=== PATIENT | female | born 1985 | race African-American/Black ===

== ENCOUNTER 2017-09-24 03:07 | Emergency (ER) | payer BC ==
--- NOTE | 2017-09-24 03:22 | PDOC ---
History of Present Illness - General Stated Complaint: STOMACH PAIN Time Seen by Provider: 09/24/17 03:22 - History of Present Illness Initial Comments: 09/24/17 03:50 Ms. Sanchez is a 32 yo female w/ pmh of sleep apnea and known umbilical hernia scheduled for repair tomorrow who presents for evaluation of abdominal pain earlier today. She reports she had an instance of sharp pain and experienced swelling of her upper abdomen that has now gone down. Is not currently having sharp pain and describes it as a more dull ache. She had some nausea with this episode earlier (without vomit). The patient denies chest pain, shortness of breath, headache and dizziness. Denies fever, chills, vomit, diarrhea and constipation. Denies dysuria, frequency, urgency and hematuria. Allergies: NKDA Past History - Past Medical History Allergies/Adverse Reactions: Allergies Allergy/AdvReac Type Severity Reaction Status Date / Time No Known Allergies Allergy Verified 09/24/17 03:26 Home Medications: Ambulatory Orders Ascorbic Acid [Vitamin C] 500 mg PO DAILY 09/19/17 - Suicide/Smoking/Psychosocial Hx Smoking History: Former smoker Have you smoked in the past 12 months: No If you are a former smoker, when did you quit?: 2009 Hx Alcohol Use: Yes (rarely) Drug/Substance Use Hx: Yes Substance Use Type: Marijuana Hx Substance Use Treatment: No Review of Systems - Review of Systems Comments:: 09/24/17 03:53 GENERAL/CONSTITUTIONAL: No fever or chills. No weakness. HEAD, EYES, EARS, NOSE AND THROAT: No change in vision. No ear pain or discharge. No sore throat. CARDIOVASCULAR: No chest pain or shortness of breath RESPIRATORY: No cough, wheezing, or hemoptysis. GASTROINTESTINAL: +Abdominal pain as described with nausea. No vomiting, diarrhea or constipation. GENITOURINARY: No dysuria, frequency, or change in urination. MUSCULOSKELETAL: No joint or muscle swelling or pain. No neck or back pain. SKIN: No rash NEUROLOGIC: No headache, vertigo, loss of consciousness, or change in strength/ sensation. ENDOCRINE: No increased thirst. No abnormal weight change HEMATOLOGIC/LYMPHATIC: No anemia, easy bleeding, or history of blood clots. ALLERGIC/IMMUNOLOGIC: No hives or skin allergy. *Physical Exam - Physical Exam Comments: 09/24/17 03:53 GENERAL: Awake, alert, and fully oriented, in no acute distress HEAD: No signs of trauma, normocephalic, atraumatic EYES: PERRLA, EOMI, sclera anicteric, conjunctiva clear ENT: Auricles normal inspection, hearing grossly normal, nares patent, oropharynx clear without exudates. Moist mucosa NECK: Normal ROM, supple, no lymphadenopathy, JVD, or masses LUNGS: No distress, speaks full sentences, clear to auscultation bilaterally HEART: Regular rate and rhythm, normal S1 and S2, no murmurs, rubs or gallops, peripheral pulses normal and equal bilaterally. ABDOMEN: +Midline defect appreciated above umbilicus. Hernia appears reduced. Tender at defect location. Soft, normoactive bowel sounds. No guarding, no rebound. No masses EXTREMITIES: Normal inspection, Normal range of motion, no edema. No clubbing or cyanosis. NEUROLOGICAL: Cranial nerves II through XII grossly intact. Normal speech, normal gait, no focal sensorimotor deficits SKIN: Warm, Dry, normal turgor, no rashes or lesions noted. 09/24/17 04:23 Medical Decision Making - Medical Decision Making 09/24/17 03:54 Ms. Sanchez is a 32 yo female w/ pmh as described who presents for evaluation of hernia pain earlier today. Hernia self reduced, no signs of strangulation at this time. Patient pain controlled with oral tylenol. Patient given strict return precautions and will otherwise follow-up at scheduled hernia repair appointment on Monday at 0930. Discharging to home. *DC/Admit/Observation/Transfer Diagnosis at time of Disposition: Hernia - Discharge Dispostion Disposition: HOME - Referrals Referrals: Latanya David MD [Primary Care Provider] - Gato Ruiz MD [Staff Physician] - - Patient Instructions Printed Discharge Instructions: Ventral Hernia Additional Instructions: Please follow-up on Monday for scheduled hernia repair as discussed. Return to ER immediately if any return of pain not controllable with over the counter medications, abdominal swelling not reducible, fever, chills, nausea, vomiting, or other concerning symptoms. - Post Discharge Activity
[2017-09-24 03:33] VITALS: BP 163/98; PULSE 74; TEMP 98.4; BMI 37.2
[2017-09-24] MEDS ORDERED: ACETAMINOPHEN 1000 MG/100 ML VIAL (NON FORMULARY) IVPB ONE (03:38)
[2017-09-24] MEDS ORDERED: ACETAMINOPHEN 500 MG TABLET (FP) PO ONE (03:51)
--- NOTE | 2017-09-24 03:59 | PDOC ---
Attending Attestation - HPI HPI: 09/24/17 04:30 The patient is a 32 year old female accompanied with her mother, with a pertinent past medical history of a hernia (unresolved), who presents to the emergency department for evaluation of epigastric pain. The patient reports intermittent episodes of moderate epigastric pain secondary to hernia. Pt reports laying down this morning when she had an onset of acute epigastric pain. She reports eating mac and cheese and pot roast prior to the onset of her pain. The patient notes this pain occurred previously when ate a hamburger. Pt notes her hernia began to worsen as she lost weight (from 260lbs to 217lbs) secondary to increased work intensity and change in diet. The patient states she scheduled ventral hernia repair on Monday 09/25, but visits the ED this morning as per advice from Dr. Ruiz who prompted her to be evaluated at the onset of pain secondary to her hernia. The patient denies chest pain, shortness of breath, headache, and dizziness. Denies fever, chills, nausea, vomiting, diarrhea, and constipation. Denies urinary frequency/urgency, dysuria, and hematuria. Allergies: NKDA Social History: No reported alcohol, cigarette, or drug use. PCP: Dr. Latanya David - Physicial Exam PE: GENERAL: Awake, alert, and fully oriented, in no acute distress HEAD: No signs of trauma EYES: PERRLA, EOMI, sclera anicteric, conjunctiva clear ENT: Auricles normal inspection, hearing grossly normal, nares patent, oropharynx clear without exudates. Moist mucosa NECK: Normal ROM, supple, no lymphadenopathy, JVD, or masses LUNGS: Breath sounds equal, clear to auscultation bilaterally. No wheezes, and no crackles HEART: Regular rate and rhythm, normal S1 and S2, no murmurs, rubs or gallops ABDOMEN: (+)Ventral hernia 5cm above umbilicus. (+)Lower abdomen has palpable fibroids. (+)Tenderness upon deep palpation. (+)Reduced hernia in ER. Soft, normoactive bowel sounds. No guarding, no rebound. No masses EXTREMITIES: Normal range of motion, no edema. No clubbing or cyanosis. No cords, erythema, or tenderness NEUROLOGICAL: Cranial nerves II through XII grossly intact. Normal speech, normal gait SKIN: Warm, Dry, normal turgor, no rashes or lesions noted. <Raju,Renju - Last Filed: 09/24/17 04:30> - Resident Resident Name: Wallace Shafer - ED Attending Attestation I have performed the following: I have examined & evaluated the patient, The case was reviewed & discussed with the resident, I agree w/resident's findings & plan - Medical Decision Making 09/24/17 05:07 Pt comes with ventral hernia pain. We successfully reduced it. She is feeling improved. Pt is scheduled for hernia repair on Monday tomorrow. SHe understands to return sooner if the hernia protrudes again or if pain comes back. <Rashmi Rhodes - Last Filed: 09/24/17 05:08> Attestations - Attestations Documentation prepared by Mauro Philippe, acting as medical billing coordinator for Rashmi Rhodes MD. <Mauro Philippe - Last Filed: 09/24/17 04:30>
[2017-09-24] MEDS ORDERED: ACETAMINOPHEN 325 MG TABLET (FP) ONE (04:10)
== END 2017-09-24 04:35 | disposition home or self-care (01) ==
LOC: JER 03:07
DX: K42.9 Umbilical hernia without obstruction or gangrene (principal); Z87.891 Personal history of nicotine dependence
CPT/HCPCS: 99282-25

== ENCOUNTER 2017-09-25 09:37 | Day surgery (SDC) | payer BC ==
[2017-09-22 11:21] VITALS: BMI 37.0
[2017-09-25] MEDS ORDERED: BUPIVACAINE HCL/PF 0.5% (5MG/ML) 10 ML VIAL ONE ×2 (10:26→11:37)
[2017-09-25] MEDS ORDERED: MIDAZOLAM HCL 2 MG/2 ML SINGLE DOSE VIAL ONE ×3 (10:28→11:15)
--- NOTE | 2017-09-25 11:01 | HP ---
History & Physical Update - History History: No Change - Physical Physical: No Change - Assessment Assessment: No Change - Plan Plan: No Change (no change since visit on 09/12/17)
[2017-09-25] MEDS ORDERED: ROCURONIUM BROMIDE 50 MG/5 ML VIAL ONE (11:15)
[2017-09-25] MEDS ORDERED: fentaNYL CITRATE 250 MCG/5 ML VIAL ONE (11:15)
[2017-09-25] MEDS ORDERED: PROPOFOL 20 ML ONE (11:15)
[2017-09-25] MEDS ORDERED: DEXAMETHASONE SOD PHOSPHATE 4 MG/1 ML VIAL ONE (11:17)
[2017-09-25] MEDS ORDERED: LIDOCAINE HCL/PF 2% SDV 5ML VIAL ONE (11:17)
[2017-09-25] MEDS ORDERED: ceFAZolin SODIUM 1 GM VIAL IVPB ONE (11:40)
[2017-09-25] MEDS ORDERED: ceFAZolin SODIUM 1 GM VIAL ONE (11:42)
[2017-09-25] MEDS ORDERED: BUPIVACAINE HCL/PF 0.5% (5MG/ML) 10 ML VIAL IJ ONE ×2 (12:19→12:52)
[2017-09-25] MEDS ORDERED: NEOSTIGMINE METHYLSULFATE 0.5 MG/ML - 10 ML MDV ONE (12:49)
[2017-09-25] MEDS ORDERED: GLYCOPYRROLATE 0.2 MG/1 ML VIAL ONE (12:50)
--- NOTE | 2017-09-25 13:07 | OP ---
Operative Note - Note: Operative Date: 09/25/17 Pre-Operative Diagnosis: Incarcerated ventral hernia Operation: Open ventral hernia repair Post-Operative Diagnosis: Same as Pre-op Surgeon: Gato Ruiz Produce Field Merchandiser: Chema Hargrove Anesthesiologist/CONFIGURATION MANAGEMENT ANALYST: Erick Priest Estimated Blood Loss (mls): 10 Fluid Volume Replaced (mls): 400 Operative Report Dictated: Yes
--- NOTE | 2017-09-25 13:08 | SURG ---
Surgery Child Care Development Specialist Note Child Care Development Specialist: Chema Hargrove PA-C Date of Service: 09/25/17 Diagnosis: Incarcerated ventral hernia Procedure: Open ventral hernia repair I was present for the entirety of the operative procedure. For further detail, please refer to operative report.
[2017-09-25] MEDS ORDERED: KETOROLAC TROMETHAMINE 30 MG/1 ML VIAL IVPUSH ONE (13:20)
[2017-09-25] MEDS ORDERED: ACETAMINOPHEN 1000 MG/100 ML VIAL (NON FORMULARY) IVPB ONE (13:20)
[2017-09-25] MEDS ORDERED: ONDANSETRON 4 MG/2 ML VIAL IVPUSH PRN (13:25)
[2017-09-25] MEDS ORDERED: LACTATED RINGERS SOLUTION 1,000 ML IV SCH (13:30)
[2017-09-25] MEDS ORDERED: oxyCODONE HCL 5 MG TABLET PO PRN ×2 (15:11)
[2017-09-25] MEDS ORDERED: ONDANSETRON 4 MG/2 ML VIAL ONE (15:12)
[2017-09-25] MEDS ORDERED: oxyCODONE HCL 5 MG TABLET ONE ×2 (15:12→17:05)
[2017-09-25 16:53] VITALS: TEMP 97.8
[2017-09-25] MEDS ORDERED: oxyCODONE HCL 5 MG TABLET PO ONE (17:05)
[2017-09-25 17:56] VITALS: BP 136/83; PULSE 56
--- NOTE | 2017-09-26 14:08 | OP ---
DATE OF OPERATION: 09/25/2017 PREOPERATIVE DIAGNOSIS: Ventral hernia. POSTOPERATIVE DIAGNOSIS: Incarcerated ventral hernia. PROCEDURE PERFORMED: Repair of incarcerated ventral hernia. SURGEON: Gato Ruiz MD GRAIN ELEVATOR OPERATOR: Chema Hargrove PA-C ANESTHESIA: General. OPERATIVE FINDINGS: There were 3 defects in the abdominal wall, starting just above the umbilicus, then a gap of 2 cm, another defect, then a gap of 2 cm and then a final defect proximally of 2 cm. The most distal defect contained incarcerated but viable small bowel. The rest of the hernia defects contained herniated preperitoneal fat and omentum. The rest of the findings showed a markedly enlarged uterus with the fundus of the uterus above the umbilicus. DESCRIPTION OF PROCEDURE: The patient was placed on the operating table in the supine position. After the induction of general anesthesia, the patient's abdomen was prepped with ChloraPrep and draped in sterile fashion. A time-out was taken. An incision was made from the umbilicus superiorly for several centimeters. This was taken down through the skin and subcutaneous tissue, and the distalmost defect was identified first in abdominal wall, which contained incarcerated but viable small bowel. The sac was opened. Using blunt and sharp dissection, the intestine was reduced. Next, the undersurface of the abdominal wall and found to be free of any adhesed small bowel. Then the 1st defect was connected to the second and third by incising the midline. Redundant sac and preperitoneal fat were excised using electrocautery and sent for pathological examination. The fascia was cleared circumferentially for at least 2 cm by mobilizing the subcutaneous fat off the anterior abdominal wall fascia. Next, the hernia defect was repaired using continuous 0 looped Maxon suture. Hemostasis was secured with electrocautery and the wound copiously irrigated with sterile saline. The operative field was infiltrated with 0.5% Marcaine. The deep subcuticular fascia/redundant hernia sac was closed over the repair with continuous 3-0 Vicryl. The deep dermis was reapproximated with interrupted 3-0 Vicryl and the skin edges with surgical clare. Dry sterile dressings were placed, and the procedure terminated at this point. The patient was aroused from general anesthesia and transferred to the postanesthesia care unit in stable condition, awake and alert. ESTIMATED BLOOD LOSS: 20 mL. REPLACEMENT: Crystalloid. DRAINS: None. SPECIMENS: Portions of hernia sac and preperitoneal fat to Pathology. I, Gato Ruiz, was physically present in the operating room from the time the patient was placed on the operating room table until she was transferred to the postanesthesia care unit in my accompaniment. MD FLYNN Acosta/[id number] MTDD
--- NOTE | 2017-09-26 16:19 | PATH ---
Surgical Pathology Report Patient Name: CHAZ BARTLETT [facility]. Rec. #: [id number] /Age/Gender: 1985 (Age: 32) / F Account: [id number] Location: [facility] SURGICAL Taken: 09/25/2017 Received: 09/25/2017 Reported: 09/26/2017 Physicians: Gato Ruiz MD Specimen(s) Received VENTRAL HERNIA SAC AND FAT Clinical History Ventral and umbilical hernia Final Diagnosis VENTRAL HERNIA SAC AND FAT, OPEN VENTRAL AND UMBILICAL HERNIA REPAIR: FIBROADIPOSE TISSUE COMPATIBLE WITH HERNIA SAC AND CONTENTS. Electronically Signed Flavia Luna M.D. Gross Description Received in formalin labeled with "ventral hernia sac and fat", are multiple lobulated fatty tissue with attached fibrous tissue, measuring 5 x 5 x 2.5 cm in aggregate. Thread Marker sections are submitted in one cassette. SHASHANK/09/25/2017 bc/09/25/2017
== END 2017-09-25 17:55 | disposition home or self-care (01) ==
LOC: JASU-SURG 09:37
PROVIDERS: ATTEND Surgery
PROC: 0WQF0ZZ Repair Abdominal Wall, Open Approach (ICD-10-PCS; principal; 2017-09-25 11:00)
DX: K43.6 Other and unspecified ventral hernia with obstruction, without gangrene (principal)
CPT/HCPCS: 84703; 88302-TC; 94760; J0131

== ENCOUNTER 2019-02-12 06:30 | Inpatient (IN) | payer BC ==
[2019-02-07 14:59] VITALS: BMI 36.8
[2019-02-12] MEDS ORDERED: ROPIVACAINE HCL 0.5% 30ML VIAL ONE (07:19)
[2019-02-12] MEDS ORDERED: MIDAZOLAM HCL 2 MG/2 ML SINGLE DOSE VIAL ONE ×3 (07:20→07:37)
--- NOTE | 2019-02-12 07:33 | HP ---
Admitting History and Physical - Admission Chief Complaint: Fibroid uterus History of Present Illness: 33 yo Para 0, with enlarged uterus associated with leiomyoma, is pre op for abdominal myomectomy. She has no past medical history and she's not on medication. History Source: Patient Limitations to Obtaining History: No Limitations - Past Medical History ...LMP: 02/06/19 ...: No ...Para: 0 - Past Surgical History Past Surgical History: Yes: None - Smoking History Smoking history: Former smoker Have you smoked in the past 12 months: No If you are a former smoker, when did you quit?: 2009 - Alcohol/Substance Use Hx Alcohol Use: Yes (rarely) - Social History Usual Living Arrangement: Yes: Alone History of Recent Travel: No Home Medications - Allergies Allergies/Adverse Reactions: Allergies Allergy/AdvReac Type Severity Reaction Status Date / Time No Known Allergies Allergy Verified 02/12/19 07:28 - Home Medications Home Medications: Ambulatory Orders Ascorbic Acid [Vitamin C] 500 mg PO DAILY 09/19/17 Cholecalciferol (Vitamin D3) [Vitamin D3 -] 50,000 mg PO DAILY 02/07/19 Family Medical History Family History: Unremarkable Review of Systems - Review of Systems Constitutional: reports: No Symptoms Eyes: reports: No Symptoms HENT: reports: No Symptoms Neck: reports: No Symptoms Cardiovascular: reports: No Symptoms Respiratory: reports: No Symptoms Gastrointestinal: reports: No Symptoms Genitourinary: reports: Pain Breasts: reports: No Symptoms Reported Musculoskeletal: reports: No Symptoms Integumentary: reports: No Symptoms Neurological: reports: No Symptoms Endocrine: reports: No Symptoms Hematology/Lymphatic: reports: No Symptoms Psychiatric: reports: No Symptoms Pain Intensity: 3 Physical Examination Vital Signs: Vital Signs Temperature 97.6 F 02/12/19 07:26 Pulse Rate 66 02/12/19 07:26 Respiratory Rate 18 02/12/19 07:26 Blood Pressure 134/76 02/12/19 07:26 O2 Sat by Pulse Oximetry (%) 100 02/12/19 07:26 Constitutional: Yes: Well Nourished Eyes: Yes: Conjunctiva Clear HENT: Yes: Atraumatic Neck: Yes: Supple Cardiovascular: Yes: Regular Rate and Rhythm Respiratory: Yes: Regular Gastrointestinal: Yes: Normal Bowel Sounds ...Rectal Exam: Yes: WNL Renal/: Yes: WNL Breast(s): Yes: WNL Musculoskeletal: Yes: WNL Extremities: Yes: WNL Neurological: Yes: Alert, Oriented ...Motor Strength: WNL Psychiatric: Yes: Alert, Oriented Problem List - Problems (1) Leiomyoma of body of uterus Problems reviewed: Yes Code(s): D25.9 - LEIOMYOMA OF UTERUS, UNSPECIFIED Assessment/Plan Leiomyoma of the uterus Pre op for abdominal myomectomy Consent signed Anesthesia to see patient
[2019-02-12] MEDS ORDERED: PROPOFOL 20 ML ONE ×3 (07:36)
[2019-02-12] MEDS ORDERED: SUCCINYLCHOLINE CHLORIDE 200 MG/10 ML SYRINGE ONE (07:36)
[2019-02-12] MEDS ORDERED: ROCURONIUM BROMIDE 50 MG/5 ML SYRINGE ONE (07:36)
[2019-02-12] MEDS ORDERED: ceFAZolin SODIUM 1 GM VIAL IVPB ONE (08:10)
[2019-02-12] MEDS ORDERED: ceFAZolin 2 GRAM PREMIX BAG IVPB ONE (08:10)
[2019-02-12] MEDS ORDERED: NEOSTIGMINE METHYLSULFATE 0.5 MG/ML - 10 ML MDV ONE (09:43)
[2019-02-12] MEDS ORDERED: ONDANSETRON 4 MG/2 ML VIAL IVPUSH PRN (09:47)
[2019-02-12] MEDS ORDERED: LACTATED RINGERS SOLUTION 1,000 ML IV SCH (10:00)
--- NOTE | 2019-02-12 10:07 | OP ---
Operative Note - Note: Operative Date: 02/12/19 Pre-Operative Diagnosis: Leiomyoma of the uterus Operation: Abdominal myomectomy Findings: Enlarged myomatous uterus consistent with 18 weeks size Post-Operative Diagnosis: Same as Pre-op Surgeon: Alessandra Felipe Materials Management Clerk: Chaim Kruger Anesthesia: General Specimens Removed: Fibroid Estimated Blood Loss (mls): 200
[2019-02-12] MEDS ORDERED: HYDROmorphone *PCA* 10MG/50ML DISP.SYRIN ONE (12:04)
[2019-02-12] MEDS: HYDROmorphone *PCA* 10MG/50ML DISP.SYRIN PCA SCH (12:14)
--- NOTE | 2019-02-12 12:40 | PN ---
Progress Note (short form) - Note Progress Note: I assisted Dr. QUIÑONES at myomectomies for the entirety of the case.
[2019-02-12] MEDS: DEXTROSE 5%-LACTATED RINGERS 1,000 ML IV SCH ×2 (15:01→20:57)
[2019-02-12] MEDS ORDERED: ceFAZolin SODIUM 1 GM VIAL ONE (17:20)
[2019-02-12] MEDS ORDERED: DEXTROSE 5%-WATER - 50 ML IVPB ONE (17:20)
[2019-02-12] MEDS: CEFAZOLIN 1 GM in DEXTROSE 5%-WATER - 50 ML IVPB SCH (17:27)
[2019-02-13] MEDS ORDERED: ceFAZolin SODIUM 1 GM VIAL ONE (01:21)
[2019-02-13] MEDS ORDERED: DEXTROSE 5%-WATER - 50 ML IVPB ONE (01:22)
[2019-02-13] MEDS: CEFAZOLIN 1 GM in DEXTROSE 5%-WATER - 50 ML IVPB SCH (01:32)
[2019-02-13] MEDS: HYDROmorphone *PCA* 10MG/50ML DISP.SYRIN PCA SCH ×2 (01:57→07:51)
[2019-02-13] MEDS: DEXTROSE 5%-LACTATED RINGERS 1,000 ML IV SCH ×3 (05:50→19:14)
--- NOTE | 2019-02-13 06:01 | PN ---
Progress Note, Physician Chief Complaint: Post op History of Present Illness: 33 yo Para 0, status post abdominal myomectomy, seen and evaluated. She c/o incision tenderness. - Current Medication List Current Medications: Active Medications Dextrose/Lactated Ringer's (D5-Lr -) 1,000 mls @ 125 mls/hr IV ASDIR DOUGLAS Last Admin: 02/13/19 05:50 Dose: 125 mls/hr Ondansetron HCl (Zofran Injection) 4 mg IVPUSH Q6H PRN PRN Reason: NAUSEA AND/OR VOMITING Oxycodone/Acetaminophen (Percocet 5/325 -) 1 combo PO Q4H PRN PRN Reason: PAIN LEVEL 1-5 - Objective Vital Signs: Vital Signs Temperature 97.9 F 02/13/19 02:00 Pulse Rate 86 02/13/19 02:33 Respiratory Rate 20 02/13/19 02:33 Blood Pressure 145/73 02/13/19 02:33 O2 Sat by Pulse Oximetry (%) 97 02/13/19 02:33 Constitutional: No: No Distress Eyes: Yes: Conjunctiva Clear HENT: Yes: Atraumatic Neck: Yes: Supple Cardiovascular: Yes: Regular Rate and Rhythm Respiratory: Yes: Regular Gastrointestinal: Yes: Normal Bowel Sounds Genitourinary: Yes: Kruger Present Breast(s): Yes: WNL Extremities: No: Calf Tenderness Wound/Incision: Yes: Dressing Dry and Intact Neurological: Yes: Alert, Oriented ...Motor Strength: WNL Psychiatric: Yes: Alert, Oriented Problem List - Problems (1) Leiomyoma of body of uterus Problems reviewed: Yes Code(s): D25.9 - LEIOMYOMA OF UTERUS, UNSPECIFIED Assessment/Plan Status post abdominal myomectomy. Ambulation Analgesia as needed CBC D/C kruger catheter Regular diet Continue routine post op care
[2019-02-13 09:00] LABS: BASO % 0.1 % (0-2.0); EOS % 0.1 % (0-4.5); HEMATOCRIT 34.2 % (32.4-45.2); HEMOGLOBIN 11.2 GM/dL (10.7-15.3); LYMPH % 10.4 % (8-40); MCH 27.6 pg (25.7-33.7); MCHC 32.6 g/dl (32.0-36.0); MEAN CELL VOLUME 84.4 fl (80-96); MEAN PLT VOLUME 9.3 fl (7.5-11.1); MONO % 8.4 % (3.8-10.2); PLATELET COUNT 209 K/MM3 (134-434); RBC 4.05 M/mm3 (3.60-5.2); RDW 15.5 % (11.6-15.6)
[2019-02-13 09:20] LABS: BLOOD UREA NITROGEN 6.2 mg/dL (7-18); CALCIUM 8.7 mg/dL (8.5-10.1); CREATININE 0.5 mg/dL (0.55-1.3); POTASSIUM 3.8 mmol/L (3.5-5.1)
--- NOTE | 2019-02-13 09:31 | PN ---
Progress Note (short form) - Note Progress Note: Pt is POD1 s/p abdominal myomectomy with TAP block and PUBLIC MESSAGE SERVICE SUPERVISOR. PUBLIC MESSAGE SERVICE SUPERVISOR was d/c'ed earlier; pt's pain is currently well tolerated. No anesthetic issues/ complications noted.
[2019-02-13] MEDS: oxyCODONE HCL 5 MG TABLET PO PRN ×2 (12:09→18:09)
[2019-02-13] MEDS: ACETAMINOPHEN 325 MG TABLET (FP) PO PRN (18:08)
[2019-02-14] MEDS: oxyCODONE HCL 5 MG TABLET PO PRN ×2 (01:00→06:15)
[2019-02-14] MEDS: ACETAMINOPHEN 325 MG TABLET (FP) PO PRN ×2 (01:00→06:14)
--- NOTE | 2019-02-14 09:19 | DS ---
Physical Examination Vital Signs: Vital Signs Temperature 98.6 F 02/14/19 06:00 Pulse Rate 80 02/14/19 06:00 Respiratory Rate 18 02/14/19 06:00 Blood Pressure 142/74 02/14/19 06:00 O2 Sat by Pulse Oximetry (%) 98 02/13/19 21:00 Constitutional: Yes: No Distress Eyes: Yes: Conjunctiva Clear HENT: Yes: Atraumatic Neck: Yes: Supple Cardiovascular: Yes: Regular Rate and Rhythm Respiratory: Yes: Regular Gastrointestinal: Yes: Normal Bowel Sounds Breast(s): Yes: WNL Extremities: No: Calf Tenderness Wound/Incision: Yes: Well Approximated, Dressing Dry and Intact Neurological: Yes: Alert, Oriented ...Motor Strength: WNL Psychiatric: Yes: Alert, Oriented Labs: CBC, BMP 02/13/19 08:30 02/13/19 08:30 Discharge Summary Problems reviewed: Yes Reason For Visit: LEIOMYOMA OF THE UTERUS Current Active Problems Leiomyoma of body of uterus (Acute) Procedures: Principal: Abdominal myomectomy Health Concerns: Thromboembolic event Plan of Treatment: Ambulation Analgesia F/U with MD in one week Goals: Resume normal activities in 3-4 weeks Condition: Good - Instructions Diet, Activity, Other Instructions: Regular diet No driving, no lifting x 3 weeks F/U with MD in one week Disposition: HOME - Home Medications Comprehensive Discharge Medication List: Ambulatory Orders Ascorbic Acid [Vitamin C] 500 mg PO DAILY 09/19/17 Cholecalciferol (Vitamin D3) [Vitamin D3 -] 50,000 mg PO DAILY 02/07/19
[2019-02-14 09:57] VITALS: BP 145/92; PULSE 84; TEMP 97.8
--- NOTE | 2019-02-15 17:27 | PATH ---
Surgical Pathology Report Patient Name: CHAZ BARTLETT [facility]. Rec. #: [id number] /Age/Gender: 1985 (Age: 33) / F Account: [id number] Location: [address] [place] [address]/[facility] Taken: 02/12/2019 Received: 02/12/2019 Reported: 02/15/2019 Physicians: Alessandra Felipe M.D. Specimen(s) Received FIBROID Clinical History Fibroid uterus Final Diagnosis FIBROID, EXCISION: LEIOMYOMA, 923 GRAMS. Electronically Signed Lucinda Sinclair M.D. Gross Description Received in formalin labeled "fibroid," is a 923 g, 13.0 x 12.5 x 9.5 cm rubbery mass, consistent with a fibroid. Sectioning reveals miller, rubbery parenchyma with whorled architecture. No areas of hemorrhage or necrosis are identified. Separately received within the same container are 2 miller-vargas portions of serosa measuring 6.5 x 1.8 x 0.5 cm and 7.0 x 2.8 x 0.4 cm. Motor Tester sections are submitted in 7 cassettes as follows: 5-0-brdptmcorscfdv fibroid; 7-abrasives sales representative separately received serosa. 02/14/2019 saudi02/14/2019
== END 2019-02-14 10:08 | disposition home or self-care (01) | DRG 743 ==
LOC: JSAMEDAYSX 06:30 → J6S 13:05
PROVIDERS: ADMIT Obstetrics & Gynecology; ATTEND Obstetrics & Gynecology
PROC: 0UB90ZZ Excision of Uterus, Open Approach (ICD-10-PCS; principal; 2019-02-12 07:30)
DX: D25.9 Leiomyoma of uterus, unspecified (principal)
CPT/HCPCS: 36415; 80048; 84703; 85025; 86850; 86900; 86901; 88305-TC; 94760

== ENCOUNTER 2022-01-21 19:23 | Emergency (ER) | payer BC, OTHER ==
[2022-01-21 20:23] VITALS: BP 159/98; PULSE 88; RESP 20; BMI 40.8
[2022-01-21] MEDS ORDERED: ACETAMINOPHEN 500 MG TABLET (FP) PO ONE (22:17)
[2022-01-21] MEDS ORDERED: ALBUTEROL SO4 HFA INHALER IH ONE ×2 (22:56→22:59)
[2022-01-21 23:07] VITALS: TEMP 100.3
== END 2022-01-21 23:02 | disposition home or self-care (01) ==
LOC: JER 19:23
PROC: 3E0F7GC Introduction of Other Therapeutic Substance into Respiratory Tract, Via Natural or Artificial Opening (ICD-10-PCS; principal; 2022-01-21)
DX: J09.X2 Influenza due to identified novel influenza A virus with other respiratory manifestations (principal)
CPT/HCPCS: 0241U-QW; 99283-25

== ENCOUNTER 2023-04-14 11:44 | Emergency (ER) | payer OTHER ==
[2023-04-14 12:08] VITALS: BP 144/100; PULSE 61; RESP 16; TEMP 98; BMI 40.3
[2023-04-14] MEDS ORDERED: CYCLOBENZAPRINE HCL 10 MG TABLET (FP) ONE (13:34)
[2023-04-14] MEDS ORDERED: KETOROLAC TROMETHAMINE 30 MG/1 ML VIAL ONE (13:35)
[2023-04-14] MEDS ORDERED: ACETAMINOPHEN 500 MG TABLET (FP) ONE (13:35)
[2023-04-14] MEDS: CYCLOBENZAPRINE HCL 10 MG TABLET (FP) PO ONE (13:41)
[2023-04-14] MEDS: ACETAMINOPHEN 325 MG TABLET (FP) PO ONE (13:41)
[2023-04-14] MEDS: KETOROLAC TROMETHAMINE 30 MG/1 ML VIAL IM ONE (13:41)
== END 2023-04-14 14:57 | disposition home or self-care (01) ==
LOC: JERFT 11:44 → JER 11:44 → JERFT 14:57
PROC: 3E0233Z Introduction of Anti-inflammatory into Muscle, Percutaneous Approach (ICD-10-PCS; principal; 2023-04-14)
DX: M54.42 Lumbago with sciatica, left side (principal)
CPT/HCPCS: 99284-25